=== PATIENT | male | born 1990 | race Caucasian/White ===

== ENCOUNTER 2025-02-13 16:51 | Emergency (ER) | payer BC, OTHER ==
[2025-02-13] MEDS ORDERED: Ibuprofen 200 MG TAB ONE (17:00)
== END 2025-02-13 17:30 | disposition home or self-care (01) ==
LOC: BURERS 16:51
DX: M25.571 Pain in right ankle and joints of right foot (principal); R03.0 Elevated blood-pressure reading, without diagnosis of hypertension
CPT/HCPCS: 99283